=== PATIENT | female | born 1950 | race Caucasian/White ===

== ENCOUNTER 2018-05-18 07:23 | Day surgery (SDC) | payer OTHER ==
[~2018-05-18] VITALS: Ht 160 cm; Wt 88.0 kg
[~2018-05-18 07:23] MED LIST: ALEN70; CHOL10002; FLUC150A; LOSA25; NICO21TP; WOMEN'S DAILY1 EAC1
== END 2018-05-18 09:15 | disposition home or self-care (01) ==
LOC: ORSCSDS 07:23
PROVIDERS: Internal Medicine Gastroenterology
PROC: 0DJ08ZZ Inspection of Upper Intestinal Tract, Via Natural or Artificial Opening Endoscopic (ICD-10-PCS; principal; 2018-05-18 09:00)
DX: R13.10 Dysphagia, unspecified (principal); K22.2 Esophageal obstruction; K20.8 Other esophagitis; I10 Essential (primary) hypertension; K44.9 Diaphragmatic hernia without obstruction or gangrene; F17.210 Nicotine dependence, cigarettes, uncomplicated; Z79.82 Long term (current) use of aspirin; Z79.899 Other long term (current) drug therapy
CPT/HCPCS: J7120

== ENCOUNTER 2018-06-13 07:47 | Day surgery (SDC) | payer OTHER ==
[~2018-06-13] VITALS: Ht 160 cm; Wt 86.6 kg
[~2018-06-13 07:47] MED LIST changes: +Aspir 8181 MG PO; +LOSA25 PO; +LOSA50 PO; +MELO7.5 PO; +MULTI FOR HER1 EAC1 PO; +OXYB5 PO; +Omeprazole20 M1 PO; +SUPER B-COMPL400 MCG PO; +VITAMIN D35000 UNI1 PO; +Vesicare10 MG PO
== END 2018-06-13 09:42 | disposition home or self-care (01) ==
LOC: ORSCSDS 07:47
PROVIDERS: Internal Medicine Gastroenterology
PROC: 0D758ZZ Dilation of Esophagus, Via Natural or Artificial Opening Endoscopic (ICD-10-PCS; principal; 2018-06-13 09:15)
DX: R13.10 Dysphagia, unspecified (principal); K22.2 Esophageal obstruction; Z87.11 Personal history of peptic ulcer disease; I10 Essential (primary) hypertension; F17.210 Nicotine dependence, cigarettes, uncomplicated; Z79.899 Other long term (current) drug therapy
CPT/HCPCS: J0330; J1980; J2405; J7120

== ENCOUNTER 2019-04-24 06:38 | Day surgery (SDC) | payer OTHER ==
[~2019-04-24] VITALS: Ht 160 cm; Wt 86.6 kg
[~2019-04-24 06:38] MED LIST changes: +Multiple Vitam1 EACH PO; +OMEPRAZOLE20 MG PO; +Super B Comple1 EAC2 PO; +VITAMIN D35000 UNIT PO
== END 2019-04-24 09:00 | disposition home or self-care (01) ==
LOC: ORSCSDS 06:38
PROVIDERS: Internal Medicine Gastroenterology
PROC: 0DBP8ZX Excision of Rectum, Via Natural or Artificial Opening Endoscopic, Diagnostic (ICD-10-PCS; principal; 2019-04-24 08:00)
DX: Z12.11 Encounter for screening for malignant neoplasm of colon (principal); K62.1 Rectal polyp; K57.30 Diverticulosis of large intestine without perforation or abscess without bleeding; K64.8 Other hemorrhoids; Z86.010 Personal history of colon polyps; I10 Essential (primary) hypertension; F17.210 Nicotine dependence, cigarettes, uncomplicated; Z79.82 Long term (current) use of aspirin; Z79.899 Other long term (current) drug therapy
CPT/HCPCS: 88305; J0330; J0461; J2405; J2704; J7120

== ENCOUNTER → 2022-04-04 | Outpatient (CLI) | payer OTHER | END | disposition home or self-care (01) | LOC: LAB 14:25 → LAB SHORT 14:25 | DX: R82.79 Other abnormal findings on microbiological examination of urine (principal) | CPT/HCPCS: 87086 ==